=== PATIENT | male | born 1990 | race Caucasian/White ===

== ENCOUNTER 2017-01-19 01:09 | Emergency (ER) | payer OTHER | END 2017-01-19 04:17 | disposition home or self-care (01) | LOC: FER 01:09 | DX: S22.32XA Fracture of one rib, left side, initial encounter for closed fracture (principal); S20.229A Contusion of unspecified back wall of thorax, initial encounter; B35.4 Tinea corporis; M54.5 Low back pain; E11.9 Type 2 diabetes mellitus without complications; F90.9 Attention-deficit hyperactivity disorder, unspecified type; F31.9 Bipolar disorder, unspecified; F17.210 Nicotine dependence, cigarettes, uncomplicated; Z88.8 Allergy status to other drugs, medicaments and biological substances; Z91.040 Latex allergy status; Z91.048 Other nonmedicinal substance allergy status; W17.89XA Other fall from one level to another, initial encounter; Y92.009 Unspecified place in unspecified non-institutional (private) residence as the place of occurrence of the external cause | CPT/HCPCS: 71020; 71100; 72050; 72072; 72110; 99283 ==